=== PATIENT | male | born 1970 | race Hispanic/Latino ===

== ENCOUNTER 2017-11-06 03:52 | Emergency (ER) | payer BC ==
[2017-11-06 04:09] VITALS: O2SAT 100
[2017-11-06] MEDS ORDERED: Dexamethasone 4 mg/1 ml IM STA (04:24)
[2017-11-06] MEDS: Albuterol 0.083% Inhal Sol (2.5 mg/3 mL) UD INH SCH ×2 (04:30→05:53)
--- NOTE | 2017-11-06 05:24 | C.PDOC ---
History Of Present Illness 47 year old male presents to the ER with a complaint of dry cough and nasal congestion; associated with intermittent chest tightness and wheezing. Patient report she no longer has improvement with her albuterol nebulizer. Denies chest pain, palpitations, fever, or chills. Time Seen by Provider: 11/06/17 04:18 Chief Complaint (Nursing): Shortness Of Breath History Per: Patient History/Exam Limitations: no limitations Onset/Duration Of Symptoms: Days Current Symptoms Are (Timing): Still Present Current Respiratory Medications: Albuterol Associated Symptoms: Other (Chest tightness and wheezing). denies: Fever, Chills, Chest Pain Recent travel outside of the [place]: No Past Medical History Reviewed: Historical Data, Nursing Documentation, Vital Signs Vital Signs: Last Vital Signs Temp 97.8 F 11/06/17 04:03 Pulse 99 H 11/06/17 04:03 Resp 16 11/06/17 04:30 BP 129/60 11/06/17 04:03 Pulse Ox 100 11/06/17 05:37 - Medical History PMH: Asthma, HTN Family History: States: Unknown Family Hx - Social History Hx Alcohol Use: Yes Hx Substance Use: No Review Of Systems Constitutional: Negative for: Fever, Chills ENT: Positive for: Nose Congestion Respiratory: Positive for: Cough, Wheezing, Other (Chest tightness). Negative for: Sputum Gastrointestinal: Negative for: Nausea, Vomiting Physical Exam - Physical Exam Appears: Non-toxic, No Acute Distress Skin: Normal Color, Warm, Dry Head: Atraumatic, Normacephalic Eye(s): bilateral: Normal Inspection Oral Mucosa: Moist Throat: Normal, No Erythema, No Exudate Neck: Normal, Supple Chest: Symmetrical, No Tenderness Cardiovascular: Rhythm Regular Respiratory: Decreased Breath Sounds, No Rales, No Rhonchi, Wheezing (Expiratory ) Neurological/Psych: Oriented x3, Normal Speech ED Course And Treatment ECG: Interpreted By Me, Viewed By Me ECG Rhythm: Sinus Rhythm ECG Interpretation: Normal Interpretation Of ECG: No acute ST/T wave changes Rate From EC O2 Sat by Pulse Oximetry: 100 Progress Note: EKG ordered. Duoneb nebulizer and decadron administered. On reevaluation, patient is resting comfortably in no distress and reports improvement of symptoms; she is no longer wheezing, has improved breath sounds, and feels comfortable going home. Will discharge home with Rx and instructions to follow up with PMD. Disposition Counseled Patient/Family Regarding: Diagnosis, Need For Followup, Rx Given - Disposition Referrals: [facility] [Outside] Disposition Time: 06:11 Condition: STABLE Additional Instructions: Increase fluids Take all meds as prescribed Return to ER if worse Prescriptions: Albuterol 0.083% [Albuterol 0.083% Inhal Rupa (2.5 mg/3 ml) UD] 2.5 mg IH TID # 100 neb Benzonatate [Tessalon Perles] 100 mg PO TID #20 sgl Cetirizine HCl [Zyrtec] 10 mg PO DAILY #20 capsule predniSONE [Prednisone] 40 mg PO DAILY #8 tab Instructions: Upper Respiratory Infection (ED) Forms: Qzzr (Thai) - Clinical Impression Clinical Impression: Upper respiratory infection, Bronchospasm - PA / TURBO OPERATOR / Resident Statement MD/DO has reviewed & agrees with the documentation as recorded. - Scribe Statement The provider has reviewed the documentation as recorded by the Scribeulalio Parisi All medical record entries made by the Scribe were at my direction and personally dictated by me. I have reviewed the chart and agree that the record accurately reflects my personal performance of the history, physical exam, medical decision making, and the department course for this patient. I have also personally directed, reviewed, and agree with the discharge instructions and disposition.
[2017-11-06] MEDS ORDERED: Albuterol-Ipratrop 3 mg / 0.5 (3 ml) UD ONE (05:51)
[2017-11-06 06:22] VITALS: BP 120/70; PULSE 90; RESP 14; TEMP 98.2
--- NOTE | 2017-11-08 14:32 | CARD ---
APPROVED REPORT EKG Measurement Heart [id number] <Conclusion> Normal sinus rhythm Possible Left atrial enlargement Borderline ECG
== END 2017-11-06 06:22 | disposition home or self-care (01) ==
LOC: C.ER 03:52
DX: J06.9 Acute upper respiratory infection, unspecified (principal); J98.01 Acute bronchospasm; I10 Essential (primary) hypertension
CPT/HCPCS: 93005; 96372; 99283; J1100